=== PATIENT | male | born 1985 | race Caucasian/White ===

== ENCOUNTER → 2019-10-31 | Outpatient (CLI) | payer OTHER | LOC: M.RAD 16:06 | PROVIDERS: ATTEND Family Medicine | DX: R19.5 Other fecal abnormalities (principal) ==

== ENCOUNTER → 2020-05-15 | Outpatient (CLI) | payer OTHER | LOC: M.RAD 15:19 | PROVIDERS: ATTEND Family Medicine | DX: M54.5 Low back pain (principal) ==